=== PATIENT | male | born 1990 | race Caucasian/White ===

== ENCOUNTER 2020-05-30 08:25 | Emergency (ER) | payer OTHER ==
[~2020-05-30] VITALS: Ht 182.9 cm; Wt 120.2 kg
[2020-05-30 09:54] VITALS: BP 130/86
== END 2020-05-30 09:54 | disposition home or self-care (01) ==
LOC: ER 08:25
DX: S81.812A Laceration without foreign body, left lower leg, initial encounter (principal); F17.210 Nicotine dependence, cigarettes, uncomplicated; Z88.8 Allergy status to other drugs, medicaments and biological substances; W26.8XXA Contact with other sharp object(s), not elsewhere classified, initial encounter; Y93.89 Activity, other specified; Y92.89 Other specified places as the place of occurrence of the external cause; Y99.8 Other external cause status